=== PATIENT | female | born 1940 | race Caucasian/White ===

== ENCOUNTER 2018-02-28 18:15 | Emergency (ER) | payer MEDICARE, OTHER ==
[~2018-02-28] VITALS: Ht 167.6 cm; Wt 108.1 kg
[~2018-02-28 18:15] MED LIST: DILT180C9 PO; FURO40TA6 PO; GABA300C10 PO; LISI-170 PO; POTA10TA11 PO; WARF-36 PO
[2018-02-28 18:20] VITALS: BP 156/84
[2018-02-28] MEDS ORDERED: SILVER NITRATE STICK TP ONE (18:59)
[2018-02-28] MEDS ORDERED: OXYMETAZOLINE NASAL SPRAY 0.05%, 15ML ONE (19:49)
[2018-02-28] MEDS ORDERED: OXYMETAZOLINE NASAL SPRAY 0.05%, 15ML NAS ONE (20:00)
== END 2018-02-28 20:10 | disposition home or self-care (01) ==
LOC: ED 19:00
DX: R04.0 Epistaxis (principal); I10 Essential (primary) hypertension
CPT/HCPCS: 30901; 99284